=== PATIENT | male | born 1965 | race Caucasian/White ===

== ENCOUNTER 2020-11-03 09:32 | Day surgery (SDC) | payer OTHER ==
[~2020-11-03] VITALS: Ht 170.2 cm; Wt 96.8 kg
[~2020-11-03 09:32] MED LIST: Amlodipine Bes2.5 MG; ZESTORETIC 20-121 EA
[2020-11-03] MEDS ORDERED: HYDCHL25 (09:45)
== END 2020-11-03 11:45 | disposition home or self-care (01) ==
LOC: ORSCSDS 09:32
PROVIDERS: Internal Medicine Gastroenterology
PROC: 0DBN8ZX Excision of Sigmoid Colon, Via Natural or Artificial Opening Endoscopic, Diagnostic (ICD-10-PCS; principal; 2020-11-03 10:45)
PROC: 0DBK8ZX Excision of Ascending Colon, Via Natural or Artificial Opening Endoscopic, Diagnostic (ICD-10-PCS; principal; 2020-11-03 10:45)
DX: Z12.11 Encounter for screening for malignant neoplasm of colon (principal); D12.2 Benign neoplasm of ascending colon; D12.5 Benign neoplasm of sigmoid colon; I10 Essential (primary) hypertension; Z79.899 Other long term (current) drug therapy
CPT/HCPCS: 88305; J2704; J7120

== ENCOUNTER 2022-11-02 09:00 | Day surgery (SDC) | payer OTHER ==
[~2022-11-02] VITALS: Ht 170.2 cm; Wt 106.1 kg
[~2022-11-02 09:00] MED LIST changes: +ATOR40TA PO; -Amlodipine Bes2.5 MG; +Amlodipine Bes2.5 MG PO; +Aspir 8181 MG PO; +Benicar40 MG PO; +CHLO25B PO; +EUTHYROX50 MCG PO; +HYDCHL25; +METO25ER PO; +MULVITA PO; +Vitamin D1000 UNI1 PO
--- NOTE | 2022-11-02 14:15 | NUR ---
PT VERBALIZED UNDERSTANDING OF WRITTEN AND VERBAL D/C INST. R WRIST TR BAND REMOVED AND DRESSED /C CLOTH DOT DRSG. R WRIST SPLINT REAPPLIED. L ARM IV REMOVED. PT TAKEN OUT OF THE HRT CENTER VIA W/C.
== END 2022-11-02 14:56 | disposition home or self-care (01) ==
LOC: MHTC 09:00
DX: I11.0 Hypertensive heart disease with heart failure (principal); I50.20 Unspecified systolic (congestive) heart failure; I42.8 Other cardiomyopathies; E78.5 Hyperlipidemia, unspecified; G47.33 Obstructive sleep apnea (adult) (pediatric); E03.9 Hypothyroidism, unspecified; R60.9 Edema, unspecified; Z99.89 Dependence on other enabling machines and devices; Z88.0 Allergy status to penicillin; Z79.899 Other long term (current) drug therapy
CPT/HCPCS: 76937; 93458; 99152; A9270; C1769; C1887; C1894; J1644; J2250; J3010; J7030; J7050; Q9967